=== PATIENT | female | born 2000 | race Two or more races ===

== ENCOUNTER 2022-09-05 18:53 | Emergency (ER) | payer MEDICAID ==
[~2022-09-05] VITALS: Ht 165.1 cm; Wt 55.0 kg
[2022-09-05 19:31] VITALS: BP 140/70
== END 2022-09-05 21:51 | disposition left against medical advice (07) ==
LOC: ER 18:56
DX: S60.512A Abrasion of left hand, initial encounter (principal); S60.511A Abrasion of right hand, initial encounter; Z53.21 Procedure and treatment not carried out due to patient leaving prior to being seen by health care provider; V43.52XA Car driver injured in collision with other type car in traffic accident, initial encounter; Y93.89 Activity, other specified; Y92.89 Other specified places as the place of occurrence of the external cause; Y99.8 Other external cause status